=== PATIENT | female | born 1975 | race Caucasian/White ===

== ENCOUNTER 2021-09-02 16:58 | Inpatient (IN) | payer BC, SELFPAY ==
[2021-09-02] VITALS (19 sets, daily range): BP systolic 139–164; BP diastolic 82–99; PULSE 114–128; RESP 17–34; TEMP 36.1; O2SAT 99–100
--- NOTE | ~2021-09-02 | XR_ITS ---
XR chest 2V DATE: 09/02/2021 17:39 INDICATION: Shortness of breath. Dizziness. TECHNIQUE: PA and lateral views COMPARISON: None FINDINGS: Normal heart size. No hilar or mediastinal enlargement. No pulmonary infiltrate or consolid ation, pleural effusion or pulmonary vascular congestion or pneumothorax. Mild aortic unfolding. Included skeletal structures are unremarkable. IMPRESSION: No active cardiopulmonary disease Reviewed, dictated and finalized at location A.
--- NOTE | ~2021-09-02 | US_ITS ---
US abdomen limited DATE: 09/03/2021 11:11 INDICATION: Pancreatitis TECHNIQUE: Real-time imaging and Doppler analysis COMPARISON: 09/02/2021 CT abdomen pelvis FINDINGS: There is hepatic steatosis. No hepatic space-occupying mass lesion is evident. There is nor mal hepatopedal portal venous flow direction. No gallstones or gallbladder wall thickening or periosteal cholecystic fluid collection. Negative son ographic Velez's sign. The common bile duct measures 2.3 mm, normal. The pancreas is largely obscured by bowel gas. IMPRESSION: Limited visualization of pancreas due to overlying gas Hepatic steatosis Reviewed, dictated and finalized at Location A. Reviewed, dictated and finalized at location A. LOGUE LIBRARIAN
--- NOTE | ~2021-09-02 | NM_ITS ---
EXAMINATION: NM maryam stress w perfusion DATE: 09/06/2021 14:14 LOAD BUILDER INDICATION: Elevated troponin. Chest pain. TECHNIQUE: Rest images were obtained following intravenous administration of 10.5 mCi Tc99m tetrofosm in (Myoview). The patient was infused intravenously with Lexiscan (regadenoson). Then, 31.2 mCi Tc99m tetrofosmin (Myoview) was administered intravenously, and stress images were obtained. Data was hill nstructed into short axis and horizontal and vertical long axis SPECT images. Gated SPECT images were also obtained. COMPARISON: None. FINDINGS: There is no definite reversible or fixed perfusion abnormality to suggest ischemia or infar ction. There is no segmental wall motion abnormality. Left ventricular ejection fraction measures 6 7%. IMPRESSION: 1. No definite ischemia or infarct. 2. Normal left ventricular ejection fraction measuring 67%. Reviewed, dictated and finalized at location A. BUILDER
--- NOTE | ~2021-09-02 | CT_ITS ---
EXAMINATION: CT abdomen pelvis w con DATE: 09/02/2021 22:08 INDICATION: Nausea, vomiting, elevated lipase. Diabetic ketoacidosis. TECHNIQUE: Computed tomography (CT) of the abdomen and pelvis was performed with 100 mL Omnipaque-350 intravenous contrast. Automated exposure control and iterative reconstruction technique were employe d. The dose-length product was 718.81 mGy-cm. COMPARISON: None FINDINGS: Lung bases are clear. Heart size is normal. No pericardial or pleural effusion. Diffuse hepatic steat osis. Gallbladder, spleen, pancreas, bilateral adrenal glands and kidneys are normal. Bowels includin g the appendix are normal. Bladder and bilateral adnexa are unremarkable. The uterus is not identifie d and has likely been surgically resected. No free intraperitoneal gas or fluid. No pathologically en larged abdominal or pelvic lymphadenopathy. Mild scattered degenerative skeletal changes in the spine and pelvis. IMPRESSION: 1. No acute intra-abdominal/pelvic process. 2. Diffuse hepatic steatosis. Reviewed, dictated and finalized at location A. ER OPERATOR
--- NOTE | ~2021-09-02 | XR_ITS ---
EXAMINATION: XR chest PICC line DATE: 09/02/2021 22:57 INDICATION: PICC line placement TECHNIQUE: frontal view of the chest was obtained. COMPARISON: Chest radiograph dated 09/02/2021 FINDINGS: The lungs remain clear with no focal airspace opacities, pulmonary edema, pleural effusion or pneumot horax. The cardiomediastinal silhouette is normal. Left upper extremity peripherally inserted central venous catheter (PICC) tip at the near the superior cavoatrial junction. IMPRESSION: 1. Right PICC line tip near the superior cavoatrial junction. 2. No acute cardiopulmonary disease. Reviewed, dictated and finalized at location A. ICE PATIENT CARE SECRETARY
--- NOTE | 2021-09-02 17:05 | ECG_ITS ---
Measurements Intervals [place] Rate: 120 P: 20 UT: 132 QRS: 36 QRSD: 93 T: 25 QT: 353 QTc: 500 Interpretive Statements SINUS TACHYCARDIA BORDERLINE R WAVE PROGRESSION, ANTERIOR LEADS MINIMAL Q WAVES- INFERIOR LEADS BASELINE ARTIFACT- I, II, III, AVR, AVL, AVF, V3, V5-V6 ABNORMAL ECG Electronically Signed On 09-02-2021 20:02:26 CDT by Juan Salinas D.O.
[2021-09-02 18:27] LABS: Glucose Point of Care 433 mg/dl (65-105)
--- NOTE | 2021-09-02 18:35 | ED.SOB ---
HPI - SOB/Dyspnea General Chief Complaint: Shortness of Breath/Dyspnea <Erin Tovar PA-C - Last Filed: 09/02/21 23:54> Stated Complaint: i cant breath <MALI Peres Last Filed: 09/02/21 23:54> Time Seen by Provider: 09/02/21 18:18 <Erin Tovar PA-C - Last Filed: 09/02/21 23:54> Source: patient <MALI Peres Last Filed: 09/02/21 23:54> Mode of arrival: ambulatory <MALI Peres Last Filed: 09/02/21 23:54> Limitations: no limitations <MALI Peres Last Filed: 09/02/21 23:54> History of Present Illness HPI Narrative: This is a 46 year old female that presents to the ER for difficulty breathing. Reports history of diabetes mellitus. Reports she does not take her blood sugars at home. She has not taken her medications for diabetes the last couple of days. Reports last night she started feeling unwell and was having a lot of nausea and vomiting. Reports feeling dehydrated. Denies fever, cough, abdominal pain, chest pain, or dysuria. <MALI Peres Last Filed: 09/02/21 23:54> Related Data Allergies/Adverse Reactions: Allergies Allergy/AdvReac Type Severity Reaction Status Date / Time Penicillins Allergy Mild Unknown Verified 09/02/21 18:48 <MALI Peres Last Filed: 09/02/21 23:54> Review of Systems Review of Systems: CONSTITUTIONAL: Denies fever ENT: Denies rhinorrhea, congestion, sore throat CARDIOVASCULAR: Denies chest pain RESPIRATORY: Reports dyspnea. Denies cough GASTROINTESTINAL: Reports nausea and vomiting. Denies abdominal pain GENITOURINARY: Denies dysuria <MALI Peres Last Filed: 09/02/21 23:54> All systems reviewed & are unremarkable except as noted in HPI and below <MALI Peres Last Filed: 09/02/21 23:54> [facility] Past Medical History Medical History: Medical History (Updated 09/02/21 @ 21:06 by Erin Tovar PA-C) History of depression History of diabetes mellitus <Erin Tovar PA-C - Last Filed: 09/02/21 23:54> Social History Social History: Social History (Updated 09/02/21 @ 18:38 by Erin Tovar PA-C) Substance use: never <Erin Tovar PA-C - Last Filed: 09/02/21 23:54> Exam Narrative: GENERAL: Ill-appearing, well-nourished, and in no acute distress. HEAD: Normocephalic, atraumatic. EYES: EOMI. ENT: Mucous membranes dry. Oropharynx without tonsillar hypertrophy exudate or other lesions. CHEST: Tachypneic. Clear to auscultation. No respiratory distress. No wheezes rales or rhonchi HEART: Regular rate and rhythm. No murmur heard. Normal peripheral pulses. ABDOMEN: Soft, nontender, nondistended, normal active bowel sounds. EXTREMITIES: Normal range of motion. No edema. SKIN: Warm, dry, no rash. NEURO: No focal deficits. Alert and oriented x3. PSYCH: Normal mood and affect <Erin Tovar PA-C - Last Filed: 09/02/21 23:54> Course SCRAP PREPARATION SUPERVISOR/PA Physician Supervision For this patient encounter, I reviewed the SCRAP PREPARATION SUPERVISOR or PA documentation, treatment plan, and medical decision making; and I had [id number] time with this patient. PAtient presented with DKA. She is awake and alert and oriented x 3. ill appearing . She is receiving IVF, IV insulin. She was extremely acidotic with ph 6.9 so given bicarb dose. She has been accepted to ICU. Nursing staff was having difficulty with IVF access. She had a 20 gauge IV in. PICC line placed for better access. Chest xray shows PICC at SVC/right atrium. It was pulled back 1 cm before securing. <Teresita Gomes MD - Last Filed: 09/03/21 00:58> Consultations Consultation #1: Spoke with Dr. Che about patient and workup who will consult <Erin Tovar PA-C - Last Filed: 09/02/21 23:54> Date: 09/02/21 <Erin Tovar PA-C - Last Filed: 09/02/21 23:54> Time: 23:06 <Erin Tovar PA-C - Last Filed: 09/02/21 23:54> Consultation #2: Spoke with hos
[2021-09-02 18:42] LABS: Alveolar/Arterial O2 Gradient 4.4 mmHg; Base Excess ABG -27.6 mEq/l (+/-2.0); Carboxyhemoglobin 0.3 % THb (0-2.0); Fractional Inspired Oxygen 21 %; HCO3 ABG 2.1 mEq/l (22.0-26.0); Methemoglobin ABG 0.6 %THb (0-1.5); Oxygen Content ABG 24.9 %vol (16.0-22.0); Oxyhemoglobin 96.8 % THb (90.0-100.0); PO2 ABG 134.1 mmHg (80.0-100.0); PO2 FiO2 Ratio Arterial Blood 6.39 %; Reduced Hemoglobin 2.3 %THb (0-5.0); Total Hemoglobin 18.2 g/dL (12.0-18.0)
[2021-09-02 18:43] LABS: Device ROOM AIR; Modified Allen's Test Pass; PCO2 ABG 9.4 mmHg (35.0-45.0); Site Drawn LEFT RADIAL; pH ABG 6.973 (7.350-7.450)
[2021-09-02] MEDS: SODIUM CHLORIDE 0.9% IV 1,000 ML 999 ML IV CONT ×2 (18:49→21:11)
[2021-09-02] MEDS: INSULIN HUMAN REGULAR (*BKC) 100 UNITS/ML 8 UNITS IV PUSH (18:52)
[2021-09-02 19:05] LABS: Basophils Absolute Auto 0.2 K/mm3 (0.0-0.1); Basophils Percent Auto 0.7 % (0.2-1.2); Eosinophils Percent Auto 0.1 % (0-4.4); Hematocrit 55.3 % (37.0-47.0); Hemoglobin 17.7 g/dL (12.0-15.0); Immature Granulocyte Absolute 0.65 K/mm3 (0.00-0.031); Immature Granulocyte Percent A 2.5 % (0-0.5); Lymphocytes Absolute Auto 2.36 K/mm3 (0.9-3.2); Lymphocytes Percent Auto 9.2 % (18.3-44.2); Mean Corpuscular Hemoglobin 32.9 pg (26-34); Mean Corpuscular Volume 102.8 fl (80-100); Mean Platelet Volume 10.3 fl (7.4-10.4); Monocytes Absolute Auto 1.8 K/mm3 (0.1-0.6); Monocytes Percent Auto 7.1 % (2.6-8.5); Neutrophils Absolute Auto 20.6 K/mm3 (1.3-6.7); Neutrophils Percent Auto 80.4 % (45.5-73.1); Platelet Count Result 370 k/mm3 (150-375); Red Blood Count 5.38 M/mm3 (4.2-5.4); Red Cell Distribution Width 13.2 % (11.5-14.5); White Blood Count 25.6 K/mm3 (4.5-10.0)
--- NOTE | 2021-09-02 19:18 | PC.NURSE ---
Report received from STAN Dempsey. Assumed care of patient at this time.
--- NOTE | 2021-09-02 19:18 | PC.NURSE ---
Phlebotomy called for repeat lab draw. Patient tough stick.
[2021-09-02 19:21] LABS: Ethanol < 10 mg/dL (<10)
--- NOTE | 2021-09-02 19:56 | PC.NURSE ---
PICC line consent obtained.
[2021-09-02 20:43] LABS: Add Urine Microscopic? YES; Appearance Urine Cloudy (Clear); Bilirubin Urine Negative (Negative); Blood Urine 1+ (Negative); Color Urine Yellow (Yellow); Glucose Urine UA 3+ mg/dL (Negative); Ketones Urine 2+ mg/dL (Negative); Leukocyte Esterase Ur Negative LEU/UL (Negative); Mucus Urine Rare /lpf; Nitrate Urine Negative (Negative); Protein Urine 3+ mg/dL (Negative); Specific Grav Ur 1.021 (1.001-1.035); Squamous Epithelial Cell Urine Few /hpf (Few); Urobilinogen Urine Negative mg/dL (<2.0); WBC Urine 0-3 /hpf
[2021-09-02 21:30] LABS: Alanine Aminotransferase 25 U/L (4-35); Albumin Level 5.2 g/dL (3.5-5.1); Alkaline Phosphatase 103 U/L (38-126); Aspartate Amino Transferase 19 U/L (14-36); Bilirubin,Total 0.5 mg/dL (0.2-1.3); Blood Urea Nitrogen 22 mg/dL (7-17); Calcium 8.5 mg/dL (8.4-10.2); Carbon Dioxide < 5 mmol/L (22-30); Chloride 108 mmol/L (98-107); Estimated CRCL calculation 41 ml/min; Estimated Glomerular Filt Rate 35; Glucose 440 mg/dL (65-110); Lipase 869 U/L (23-300); Magnesium 2.7 mg/dL (1.6-2.3); Phosphorus 6.1 mg/dL (2.5-4.5); Potassium 5.6 mmol/L (3.4-5.0); Sodium 141 mmol/L (137-145)
--- NOTE | 2021-09-02 22:00 | PC.NURSE ---
Bedside glucose is 399.
--- NOTE | 2021-09-02 22:01 | PC.NURSE ---
Patient taken to CT via stretcher.
[2021-09-02 22:03] LABS: Glucose Point of Care 399 mg/dl (65-105)
--- NOTE | 2021-09-02 22:40 | PC.NURSE ---
RN attempted to start Insulin Gtt and give bicarb push, but procedure is currently being done with entire field sterile at this time.
--- NOTE | 2021-09-02 22:56 | PC.NURSE ---
PICC being placed by specialty RN.
[2021-09-02] MEDS: SODIUM BICARBONATE 8.4% 50 MEQ/50 ML SYRINGE 83 MEQ IV PUSH (23:09)
[2021-09-02 23:22] LABS: Glucose Point of Care 333 mg/dl (65-105)
[2021-09-02] MEDS: INSULIN HUMAN REGULAR (*BKC) 100 UNITS in SODIUM CHLORIDE 0.9% IV 99 ML 5.46 UNITS IV CONT (23:27)
[2021-09-03] VITALS (19 sets, daily range): BP systolic 121–178; BP diastolic 78–98; PULSE 96–125; RESP 20–26; TEMP 36.4–36.8; O2SAT 97–100; BMI 28.8
[2021-09-03 00:24] LABS: Glucose Point of Care 356 mg/dl (65-105)
--- NOTE | 2021-09-03 00:24 | PC.NURSE ---
Bedside glucose 356.
[2021-09-03 01:05] LABS: Blood Urea Nitrogen 18 mg/dL (7-17); Calcium 5.7 mg/dL (8.4-10.2); Carbon Dioxide < 5 mmol/L (22-30); Chloride 117 mmol/L (98-107); Estimated CRCL calculation 63 ml/min; Estimated Glomerular Filt Rate 60; Glucose 335 mg/dL (65-110); Magnesium 1.9 mg/dL (1.6-2.3); Phosphorus 4.1 mg/dL (2.5-4.5); Sodium 141 mmol/L (137-145)
[2021-09-03 01:37] LABS: Glucose Point of Care 291 mg/dl (65-105)
[2021-09-03 02:00] LABS: Glucose Point of Care 266 mg/dl (65-105)
--- NOTE | 2021-09-03 02:23 | PC.NURSE ---
Bedside glucose is 251.
[2021-09-03 02:25] LABS: Glucose Point of Care 251 mg/dl (65-105)
--- NOTE | 2021-09-03 03:03 | PM.IMHP ---
H&P: HPI History of Present Illness Date/Time: 09/03/21 03:03 Chief Complaint: Shortness of breath, nausea vomiting Narrative: 46-year-old female with past medical history of type 2 diabetes mellitus who presented to the ER from urgent care due to dyspnea, nausea and vomiting. She reports that he has not taken her metformin or Jardiance in several weeks. She is supposed to be taking Ozempic but cannot afford it. She does not check her blood glucoses. She started having dyspnea on Saturday evening that had progressively worsened so she went to urgent care for evaluation. [facility] care referred her to the ER. She reports that dyspnea was accompanied by a sensation of tightness around her lower chest and epigastric area. She denies any cough. She has been having nasal congestion for several weeks but is unchanged over that time period. She denies any visual changes. She reports that she has had an extremely dry mouth since Saturday. She also started feeling somewhat nauseated on Saturday with significant decreased appetite. She states that she is able to tolerate clear liquids but any time she tries to eat food she has worsening nausea with some vomiting. She denies any a a matted masses or coffee-ground emesis. She has not been having any diarrhea or constipation. She denies any polydipsia. Sounds as if she likely has some chronic polyuria is unchanged from baseline. She denies a history of diabetic peripheral neuropathy or retinopathy. She reports that her hands and feet have been extremely cold for the last couple of days to a week. She reports that she has never had DKA in the past. She has had diabetes since either 2001 or 2011. She received the [employer] COVID vaccine in January. Review of Systems Review of Systems: 12 systems were reviewed with pertinent positives and negatives per HPI. Except as documented in the HPI, all other systems were reviewed and are negative. [facility] Past Medical History Medical History (Updated 09/03/21 @ 04:01 by Mary Rodriguez DO) Depression Diabetes mellitus Obstructive sleep apnea Noncompliant with CPAP therapy Surgical History Surgical History (Updated 09/03/21 @ 04:01 by Mary Rodriguez DO) H/O hysterectomy for benign disease Family History Family History (Updated 09/03/21 @ 04:02 by Mary Rodriguez DO) Other Unknown family medical history Social History Social History (Updated 09/03/21 @ 04:04 by HELLEN Lopez Social History: She lives with her of 21 years. She does not have any children. She is a full-time residential real estate sales manager. She is a former smoker she used to smoke 0.5 packs of cigarettes per week for approximately 25 years. Primary care physician: Dr. Grace Currie in [place] Code status: Full code Surrogate decision maker: Samir () Years smoked: 25 Smoking status: Former smoker Alcohol intake: current Drinks per week: 21 Alcohol use details: She drinks 2-3 alcoholic beverages a night. Substance use: never Comments The patient reports that she is estranged from her mother and father and her brother. She does not know their medical history and states that she does not even know if they are still alive. Meds Home Medications and Allergies Allergies Allergy/AdvReac Type Severity Reaction Status Date / Time Penicillins Allergy Mild Unknown Verified 09/02/21 18:48 Vital Signs Vital Signs - 24 hr 09/02/21 17:05 09/02/21 18:10 09/02/21 19:55 Temperature 97 F L Pulse Rate 114 H 123 H 126 H Respiratory Rate 17 34 H Blood Pressure 139/87 164/99 H Pulse Oximetry 100 100 100 09/02/21 19:57 09/02/21 20:00 09/02/21 20:01 Temperature Pulse Rate 122 H 128 H Respiratory Rate 28 H 26 H 25 H Blood Pressure 162/85 H 152/82 H Pulse Oximetry 100 99 100 09/02/21 20:15 09/02/21 20:42 09/02/21 20:45 Temperature Pulse Rate 115 H 116 H 115 H Respiratory Rate 23 H 22 H 19 Blood Pressure
[2021-09-03] MEDS: KCL 20 MEQ/D5/0.45% SOD CHL 1,000 ML 150 ML IV CONT ×3 (03:13→20:16)
[2021-09-03] MEDS: SODIUM CHLORIDE 0.9% IV 1,000 ML 999 ML IV CONT ×2 (03:55→05:04)
--- NOTE | 2021-09-03 04:08 | PC.NURSE ---
This patient, Brunilda Wheeler, was admitted to Intensive Care Unit-10. Patient/family oriented to hospital policies and general routines including ID bracelet, bed and alarms, visiting hours, pain management, procedures, bathroom and other care routines, personal items, smoking policy, room service/diet, and visiting hours. Information on how to activate the Rapid Response Team has been discussed. Patient/Family are encouraged to report perceived risks to care and to ask questions if they do not understand what they are told or what they should do.
[2021-09-03 04:38] LABS: Hematocrit 43.4 % (37.0-47.0); Hemoglobin 14.3 g/dL (12.0-15.0); Mean Corpuscular HGB Conc 32.9 g/dl (32-36); Mean Corpuscular Hemoglobin 32.8 pg (26-34); Mean Corpuscular Volume 99.5 fl (80-100); Mean Platelet Volume 9.8 fl (7.4-10.4); Platelet Count Result 265 k/mm3 (150-375); Red Blood Count 4.36 M/mm3 (4.2-5.4); Red Cell Distribution Width 13.2 % (11.5-14.5); White Blood Count 21.4 K/mm3 (4.5-10.0)
[2021-09-03 04:50] LABS: Blood Urea Nitrogen 18 mg/dL (7-17); Calcium 7.9 mg/dL (8.4-10.2); Carbon Dioxide < 5 mmol/L (22-30); Chloride 121 mmol/L (98-107); Estimated CRCL calculation 66 ml/min; Estimated Glomerular Filt Rate > 60; Glucose 255 mg/dL (65-110); Potassium 3.7 mmol/L (3.4-5.0); Sodium 145 mmol/L (137-145)
[2021-09-03] MEDS: CENTRAL LINE FLUSH 10 ML IV PUSH ×3 (06:08→21:42)
[2021-09-03 06:10] LABS: Glucose Point of Care 210 mg/dl (65-105)
[2021-09-03 06:10] LABS: Glucose Point of Care 211 mg/dl (65-105)
[2021-09-03 06:10] LABS: Glucose Point of Care 229 mg/dl (65-105)
[2021-09-03 06:10] LABS: Glucose Point of Care 212 mg/dl (65-105)
[2021-09-03 06:11] LABS: Glucose Point of Care 209 mg/dl (65-105)
[2021-09-03 07:01] LABS: Glucose Point of Care 182 mg/dl (65-105)
[2021-09-03] MEDS: SODIUM BICARBONATE 8.4% 50 MEQ/50 ML SYRINGE 74 MEQ IV PUSH (07:55)
[2021-09-03] MEDS: ENOXAPARIN 40 MG/0.4 ML SYRINGE SUB-Q (08:04)
[2021-09-03 08:06] LABS: Glucose Point of Care 181 mg/dl (65-105)
--- NOTE | 2021-09-03 08:37 | ECG_ITS ---
Measurements Intervals [place] Rate: 104 P: 12 CO: 139 QRS: 16 QRSD: 96 T: 238 QT: 355 QTc: 467 Interpretive Statements SINUS TACHYCARDIA BORDERLINE R WAVE PROGRESSION, ANTERIOR LEADS MINIMAL Q WAVES- INFERIOR LEADS NONSPECIFIC ST & T-WAVE ABNORMALITY- INF/LAT LEADS BORDERLINE ECG Electronically Signed On 09-03-2021 13:24:04 FLUE CLEANER by Juan Salinas D.O.
[2021-09-03 09:02] LABS: Glucose Point of Care 167 mg/dl (65-105)
[2021-09-03 09:10] LABS: Anion Gap 14 mmol/L (8-16); Blood Urea Nitrogen 15 mg/dL (7-17); Carbon Dioxide 10 mmol/L (22-30); Chloride 123 mmol/L (98-107); Estimated CRCL calculation 83 ml/min; Estimated Glomerular Filt Rate > 60; Glucose 182 mg/dL (65-110); Lipase 1093 U/L (23-300); Potassium 2.8 mmol/L (3.4-5.0); Sodium 147 mmol/L (137-145)
--- NOTE | 2021-09-03 09:33 | WPDCNINT ---
Assessment and Plan Assessment and plan (1) Diabetic ketoacidosis: Qualifiers: Diabetes mellitus complication detail: without coma Diabetes mellitus type: type 2 Qualified Code(s): E11.10 - Type 2 diabetes mellitus with ketoacidosis without coma Code(s): E11.10 - Type 2 diabetes mellitus with ketoacidosis without coma Status: Acute Assessment and Plan: Secondary to noncompliance. Her HbA1c is pending Patient was given IV fluid bolus and started on IV insulin infusion. She is also on IV fluids which have been transition to D5 with half-normal saline with potassium. Her BMP this morning shows hypokalemia with K of 2.8. I have pause her insulin drip and will replace potassium and resume insulin drip after 4 hours Continue serial BMPs Pending consult rotary bar operator. Advance diet as patient at this time does not have any GI symptoms (2) Leukocytosis: Code(s): D72.829 - Elevated white blood cell count, unspecified Status: Acute Assessment and Plan: Likely due to hemoconcentration and or stress reaction from dehydration. The patient has no evidence of active infection. (3) Dehydration: Code(s): E86.0 - Dehydration Status: Acute Assessment and Plan: Secondary to DKA she has received seeing him IV fluids and will continue on IV fluids infusion at this time (4) Pancreatitis: Code(s): K85.90 - Acute pancreatitis without necrosis or infection, unspecified Status: Acute Assessment and Plan: Elevated lipase be secondary to DKA or her alcohol use Her bilirubin level was normal Check triglycerides Check right upper quadrant ultrasound Monitor lipase level (5) Chest pain: Code(s): R07.9 - Chest pain, unspecified Status: Acute Assessment and Plan: Patient complains of bandlike sensation around chest which has resolved at this time. And patient is at high risk of coronary disease due to diabetes, will repeat EKG and check troponins. G done on admission review (6) Acute kidney injury: Code(s): N17.9 - Acute kidney failure, unspecified Status: Acute Assessment and Plan: Patient presented with elevated creatinine 1.6 which was likely from dehydration and hypovolemia. Creatinine has improved with IV fluids and is now in normal range. Urine output electrolytes and creatinine Additional Plan DVT prophylaxis -Lovenox Nutrition -advanced Code Status - Full Code Total Critical Care Time - 32 minutes Due to a high probability of clinically significant, life threatening deterioration, the patient required my highest level of preparedness to intervene emergently and I personally spent this critical care time directly and personally managing the patient. This critical care time included obtaining a history; examining the patient; pulse oximetry; ordering and review of studies; arranging urgent treatment with development of a management plan; evaluation of patient's response to treatment; frequent reassessment; and discussions with other providers. It was exclusive of separately billable procedures and treating other patients and teaching time. Please see Assessment and Plan section and the rest of the note for further information on patient assessment and treatment [employer] Specialist Consult Note Consult date: 09/03/21 HPI: Brunilda Wheeler is a 46 year old female with past medical history of depression and type 2 diabetes who was currently not taking any medication secondary to noncompliance presented with chief complaint of shortness of breath ER yesterday. Patient stated that shortness of breath started 2 days ago and she felt that she was running a marathon all the time and was unable to catch her breath. She felt dehydrated dry mouth. She had nausea vomiting and unable to keep any significant amount of f food down. She states that she had a sensation of band around her chest as she was unable to catch her breath which lasted
[2021-09-03] MEDS: POTASSIUM CHLORIDE 20 MEQ TABLET 40 MEQ PO ×2 (09:46→22:30)
[2021-09-03 10:06] LABS: Glucose Point of Care 182 mg/dl (65-105)
[2021-09-03 10:23] LABS: Triglycerides 161 mg/dL (<150)
[2021-09-03 10:56] LABS: Troponin I 0.184 ng/mL (0.000-0.034)
[2021-09-03 14:07] LABS: Glucose Point of Care 420 mg/dl (65-105)
[2021-09-03] MEDS: SODIUM CHLORIDE 0.9% IV 1,000 ML 150 ML IV CONT (14:18)
[2021-09-03] MEDS: ASPIRIN 325 MG TABLET PO (14:24)
[2021-09-03 14:56] LABS: Anion Gap 17 mmol/L (8-16); Blood Urea Nitrogen 12 mg/dL (7-17); Calcium 7.8 mg/dL (8.4-10.2); Carbon Dioxide 6 mmol/L (22-30); Chloride 117 mmol/L (98-107); Estimated CRCL calculation 83 ml/min; Estimated Glomerular Filt Rate > 60; Glucose 551 mg/dL (65-110); Potassium 4.1 mmol/L (3.4-5.0); Sodium 140 mmol/L (137-145)
[2021-09-03 15:06] LABS: Troponin I 0.237 ng/mL (0.000-0.034)
[2021-09-03 15:10] LABS: Glucose Point of Care 407 mg/dl (65-105)
[2021-09-03] MEDS: INSULIN HUMAN REGULAR (*BKC) 100 UNITS in SODIUM CHLORIDE 0.9% IV 99 ML 30 UNITS IV CONT (15:20)
[2021-09-03 16:13] LABS: Glucose Point of Care 388 mg/dl (65-105)
[2021-09-03 17:10] LABS: Glucose Point of Care 259 mg/dl (65-105)
[2021-09-03] MEDS: INSULIN HUMAN REGULAR (*BKC) 100 UNITS in SODIUM CHLORIDE 0.9% IV 99 ML 11.5 UNITS IV CONT (18:19)
[2021-09-03 18:22] LABS: Glucose Point of Care 156 mg/dl (65-105)
[2021-09-03 19:26] LABS: Glucose Point of Care 267 mg/dl (65-105)
[2021-09-03 20:21] LABS: Glucose Point of Care 323 mg/dl (65-105)
[2021-09-03] MEDS: INSULIN HUMAN REGULAR (*BKC) 100 UNITS in SODIUM CHLORIDE 0.9% IV 99 ML 9.7 UNITS IV CONT (21:35)
[2021-09-03 21:48] LABS: Glucose Point of Care 129 mg/dl (65-105)
[2021-09-03 22:05] LABS: Anion Gap 11 mmol/L (8-16); Blood Urea Nitrogen 8 mg/dL (7-17); Calcium 8.5 mg/dL (8.4-10.2); Carbon Dioxide 13 mmol/L (22-30); Chloride 116 mmol/L (98-107); Estimated CRCL calculation 113 ml/min; Estimated Glomerular Filt Rate > 60; Glucose 158 mg/dL (65-110); Potassium 2.6 mmol/L (3.4-5.0); Sodium 140 mmol/L (137-145)
[2021-09-03 22:38] LABS: Glucose Point of Care 103 mg/dl (65-105)
[2021-09-04] VITALS (10 sets, daily range): BP systolic 134–166; BP diastolic 75–85; PULSE 90–118; RESP 16–23; TEMP 36.5–36.8; O2SAT 99–100; BMI 33.2
[2021-09-04 00:26] LABS: Glucose Point of Care 116 mg/dl (65-105)
[2021-09-04 03:38] LABS: Glucose Point of Care 197 mg/dl (65-105)
[2021-09-04 05:16] LABS: Glucose Point of Care 182 mg/dl (65-105)
[2021-09-04] MEDS: KCL 20 MEQ/D5/0.45% SOD CHL 1,000 ML 150 ML IV CONT ×2 (05:18→12:10)
[2021-09-04 05:22] LABS: Hematocrit 35.3 % (37.0-47.0); Hemoglobin 12.3 g/dL (12.0-15.0); Mean Corpuscular HGB Conc 34.8 g/dl (32-36); Mean Corpuscular Hemoglobin 32.8 pg (26-34); Mean Corpuscular Volume 94.1 fl (80-100); Mean Platelet Volume 9.7 fl (7.4-10.4); Platelet Count Result 183 k/mm3 (150-375); Red Blood Count 3.75 M/mm3 (4.2-5.4); Red Cell Distribution Width 13.6 % (11.5-14.5); White Blood Count 11.5 K/mm3 (4.5-10.0)
[2021-09-04] MEDS: CENTRAL LINE FLUSH 10 ML IV PUSH ×3 (05:22→21:14)
[2021-09-04 05:42] LABS: Alanine Aminotransferase 18 U/L (4-35); Albumin Level 3.3 g/dL (3.5-5.1); Alkaline Phosphatase 53 U/L (38-126); Anion Gap 12 mmol/L (8-16); Aspartate Amino Transferase 19 U/L (14-36); Bilirubin,Total 0.5 mg/dL (0.2-1.3); Blood Urea Nitrogen 6 mg/dL (7-17); Calcium 8.1 mg/dL (8.4-10.2); Carbon Dioxide 12 mmol/L (22-30); Chloride 114 mmol/L (98-107); Estimated CRCL calculation 96 ml/min; Estimated Glomerular Filt Rate > 60; Glucose 180 mg/dL (65-110); Magnesium 2.1 mg/dL (1.6-2.3); Potassium 3.2 mmol/L (3.4-5.0); Sodium 138 mmol/L (137-145)
[2021-09-04 06:44] LABS: Anion Gap 11 mmol/L (8-16); Blood Urea Nitrogen 7 mg/dL (7-17); Carbon Dioxide 11 mmol/L (22-30); Chloride 114 mmol/L (98-107); Estimated CRCL calculation 113 ml/min; Estimated Glomerular Filt Rate > 60; Glucose 206 mg/dL (65-110); Sodium 136 mmol/L (137-145)
[2021-09-04 06:58] LABS: Glucose Point of Care 121 mg/dl (65-105)
--- NOTE | 2021-09-04 07:54 | ECHO_ITS ---
Patient Info Name: Brunilda Wheeler Age: 46 years : 1975 Gender: Female Ht: 63 in Wt: 187 lbs BSA: 1.98 m2 HR: 97 bpm BP: 146 / 77 mmHg Heart Rhythm: Sinus Rhythm Exam Date: 09/04/2021 9:46 AM Exam Location: [facility] Patient Status: Inpatient Admit Date: 09/03/2021 Staff Ordering Physician: Renan Pepe MD Middleware Engineer: Tayo Velez RDCS, RT Attending Provider: Mary Rodriguez DO Referring Physician: My SCANLON; Exam Type: CA echo doppler color flow Study Info Indications I50.9 - Heart failure, unspecified Complete two-dimensional, color flow and Doppler transthoracic echocardiogram is performed. Strain analysis performed. Summary 1. Complete two-dimensional, color flow and Doppler transthoracic echocardiogram is performed. 2. Mild left ventricular hypertrophy with hyperdynamic systolic function. 3. Trivial amount of aortic valve regurgitation. Left Ventricle Left ventricular chamber dimension is normal. Left ventricular systolic function is hyperdynamic, estimated at >70%. There is mild concentric increased left ventricular wall thickness. The left ventricular diastolic function is grade I diastolic dysfunction. Right Ventricle Right ventricular chamber dimension is normal. Left Atria Left atrial chamber dimension is normal. Right Atria Right atrial chamber dimension is normal. Aortic Valve The aortic valve is normal. Pulmonic Valve The pulmonic valve is not well visualized. Mitral Valve The mitral valve has normal leaflets. Tricuspid Valve The tricuspid valve leaflets are normal. Pericardium/Pleural The pericardium appears normal. Aorta The aortic root size at the sinus of Valsalva is normal. Left Ventricular Outflow Tract Name Value Normal LVOT 2D LVOT Diameter 2.0 cm LVOT Doppler LVOT Peak Gradient 4 mmHg LVOT Mean Gradient 2 mmHg LVOT VTI 18 cm LVOT VTI/AV VTI Ratio 0.7 LVOT Stroke Volume 54 ml LVOT CO 5.6 l/min LVOT CI 2.8 l/min/m2 Mitral Valve Name Value Normal MV Doppler MV Decel [place] 421 cm/s2 MV PHT 55 ms MV Area (PHT) 4.0 cm2 4.0-5.0 MV Diastolic Function MV E Peak Velocity 79 cm/s MV A Peak Velocity 72 cm/s MV E/A 1.1 MV Decel Time 189 ms MV Annular TDI MV E/e' (Septal)
[2021-09-04] MEDS: ENOXAPARIN 40 MG/0.4 ML SYRINGE SUB-Q (08:32)
[2021-09-04] MEDS: ASPIRIN 325 MG TABLET PO (08:32)
[2021-09-04 08:36] LABS: Glucose Point of Care 92 mg/dl (65-105)
[2021-09-04] MEDS: POTASSIUM CHLORIDE 20 MEQ TABLET 40 MEQ PO (08:36)
[2021-09-04 09:29] LABS: Glucose Point of Care 91 mg/dl (65-105)
[2021-09-04 09:54] LABS: Anion Gap 7 mmol/L (8-16); Blood Urea Nitrogen 4 mg/dL (7-17); Calcium 7.9 mg/dL (8.4-10.2); Carbon Dioxide 16 mmol/L (22-30); Chloride 115 mmol/L (98-107); Estimated CRCL calculation 147 ml/min; Estimated Glomerular Filt Rate > 60; Glucose 108 mg/dL (65-110); Potassium 3.4 mmol/L (3.4-5.0); Sodium 138 mmol/L (137-145)
[2021-09-04] MEDS: INSULIN GLARGINE (*BKC) 100 UNITS/ML 30 UNITS SUB-Q (11:40)
[2021-09-04 11:44] LABS: Glucose Point of Care 263 mg/dl (65-105)
[2021-09-04 11:44] LABS: Glucose Point of Care 90 mg/dl (65-105)
[2021-09-04 11:44] LABS: Glucose Point of Care 230 mg/dl (65-105)
--- NOTE | 2021-09-04 11:59 | PCDIET ---
Dietitian consult for DKA. See Nutritional Teaching Intervention. Thank you for the consult.
[2021-09-04] MEDS: INSULIN ASPART (*BKC) 100 UNITS/ML SUB-Q ×2 (12:20→17:43)
[2021-09-04 13:17] LABS: Glucose Point of Care 265 mg/dl (65-105)
[2021-09-04 13:44] LABS: Anion Gap 8 mmol/L (8-16); Blood Urea Nitrogen 3 mg/dL (7-17); Calcium 8.1 mg/dL (8.4-10.2); Carbon Dioxide 15 mmol/L (22-30); Chloride 114 mmol/L (98-107); Estimated CRCL calculation 121 ml/min; Estimated Glomerular Filt Rate > 60; Glucose 239 mg/dL (65-110); Potassium 3.6 mmol/L (3.4-5.0); Sodium 137 mmol/L (137-145)
--- NOTE | 2021-09-04 13:58 | WPDINTPN ---
Progress Note: A&P Assessment and Plan (1) Diabetic ketoacidosis: Qualifiers: Diabetes mellitus complication detail: without coma Diabetes mellitus type: type 2 Qualified Code(s): E11.10 - Type 2 diabetes mellitus with ketoacidosis without coma Code(s): E11.10 - Type 2 diabetes mellitus with ketoacidosis without coma Status: Acute Assessment and Plan: Secondary to noncompliance. Her HbA1c is pending Patient was given IV fluid bolus and started on IV insulin infusion. -anion gap has closed, will transition to long-acting insulin sliding scale insulin -will initiate diabetic diet -pending field staff manager evaluation (2) Leukocytosis: Code(s): D72.829 - Elevated white blood cell count, unspecified Status: Acute Assessment and Plan: Likely due to hemoconcentration and or stress reaction from dehydration. The patient has no evidence of active infection. (3) Dehydration: Code(s): E86.0 - Dehydration Status: Acute Assessment and Plan: Secondary to DKA she has received seeing him IV fluids and will continue on IV fluids infusion at this time (4) Pancreatitis: Code(s): K85.90 - Acute pancreatitis without necrosis or infection, unspecified Status: Acute Assessment and Plan: Elevated lipase be secondary to DKA or her alcohol use Her bilirubin level was normal Triglycerides mildly elevated RUQ ultrasound hepatic steatosis, limited visualization of pancreas due to overlying gas Monitor lipase level (5) Chest pain: Code(s): R07.9 - Chest pain, unspecified Status: Acute Assessment and Plan: Patient complains of bandlike sensation around chest which has resolved at this time. And patient is at high risk of coronary disease due to diabetes, -troponins have plateaued, will obtain echocardiogram -consult cardiology -continue aspirin (6) Acute kidney injury: Code(s): N17.9 - Acute kidney failure, unspecified Status: Acute Assessment and Plan: Patient presented with elevated creatinine 1.6 which was likely from dehydration and hypovolemia. Creatinine has improved with IV fluids and is now in normal range. -creatinine down to 0.6 adequate urine output, continue to monitor urine output electrolytes and creatinine Additional Plan DVT prophylaxis -Lovenox Nutrition -advance to diabetic diet Code Status - Full Code Total Critical Care Time - 32 minutes Due to a high probability of clinically significant, life threatening deterioration, the patient required my highest level of preparedness to intervene emergently and I personally spent this critical care time directly and personally managing the patient. This critical care time included obtaining a history; examining the patient; pulse oximetry; ordering and review of studies; arranging urgent treatment with development of a management plan; evaluation of patient's response to treatment; frequent reassessment; and discussions with other providers. It was exclusive of separately billable procedures and treating other patients and teaching time. Please see Assessment and Plan section and the rest of the note for further information on patient assessment and treatment Subjective Date/time seen: 09/04/21 13:58 Interval history: Reason for consult: Hyperglycemia, diabetic ketoacidosis 09/04/2021: Patient seen and examined this morning, feels much better, denies any shortness of breath, chest pain, abdominal pain, nausea, vomiting. Urine output has been adequate, afebrile and hemodynamically stable. Troponins have plateaued Review of Systems Review of Systems: All systems reviewed & are unremarkable except as noted in HPI and below Exam Narrative: General: No acute distress, well-developed well-nourished HEENT: Moist oral mucosa, pupils equal and reactive Respiratory: No tachypnea, no increased work of breathing Cardiovascular: Sinus tachycardia,
--- NOTE | 2021-09-04 19:07 | PC.NURSE ---
This patient, Brunilda Wheeler, was transferred to [facility] on 09/04/21 at 1852. Personal belongings sent with patient. Report given to Genna PIERCE. Appropriate documentation sent with patient.
[2021-09-04 21:40] LABS: Glucose Point of Care 231 mg/dl (65-105)
[2021-09-05] MEDS: ACETAMINOPHEN 325 MG TABLET 650 MG PO (00:25)
[2021-09-05] MEDS: CENTRAL LINE FLUSH 10 ML IV PUSH (05:40)
[2021-09-05] MEDS: KCL 20 MEQ/D5/0.45% SOD CHL 1,000 ML 150 ML IV CONT (05:40)
[2021-09-05 06:00] VITALS: BP 156/88; PULSE 93; RESP 18; TEMP 37.1; O2SAT 99
[2021-09-05 06:32] LABS: Basophils Percent Auto 0.5 % (0.2-1.2); Eosinophils Percent Auto 0.6 % (0-4.4); Hematocrit 35.1 % (37.0-47.0); Hemoglobin 12.2 g/dL (12.0-15.0); Immature Granulocyte Absolute 0.03 K/mm3 (0.00-0.031); Immature Granulocyte Percent A 0.5 % (0-0.5); Lymphocytes Absolute Auto 1.91 K/mm3 (0.9-3.2); Lymphocytes Percent Auto 29.9 % (18.3-44.2); Mean Corpuscular HGB Conc 34.8 g/dl (32-36); Mean Corpuscular Hemoglobin 33.1 pg (26-34); Mean Corpuscular Volume 95.1 fl (80-100); Mean Platelet Volume 10.3 fl (7.4-10.4); Monocytes Absolute Auto 0.6 K/mm3 (0.1-0.6); Monocytes Percent Auto 8.8 % (2.6-8.5); Neutrophils Absolute Auto 3.8 K/mm3 (1.3-6.7); Neutrophils Percent Auto 59.7 % (45.5-73.1); Platelet Count Result 168 k/mm3 (150-375); Red Blood Count 3.69 M/mm3 (4.2-5.4); Red Cell Distribution Width 13.8 % (11.5-14.5); White Blood Count 6.4 K/mm3 (4.5-10.0)
[2021-09-05 06:44] LABS: Alanine Aminotransferase 16 U/L (4-35); Albumin Level 3.2 g/dL (3.5-5.1); Alkaline Phosphatase 56 U/L (38-126); Anion Gap 6 mmol/L (8-16); Aspartate Amino Transferase 19 U/L (14-36); Bilirubin,Total 0.6 mg/dL (0.2-1.3); Blood Urea Nitrogen 5 mg/dL (7-17); Carbon Dioxide 22 mmol/L (22-30); Chloride 109 mmol/L (98-107); Estimated CRCL calculation 121 ml/min; Estimated Glomerular Filt Rate > 60; Glucose 233 mg/dL (65-110); Lipase 509 U/L (23-300); Magnesium 1.9 mg/dL (1.6-2.3); Potassium 3.5 mmol/L (3.4-5.0); Sodium 137 mmol/L (137-145)
[2021-09-05 08:13] LABS: Glucose Point of Care 208 mg/dl (65-105)
[2021-09-05] MEDS: ENOXAPARIN 40 MG/0.4 ML SYRINGE SUB-Q (08:53)
[2021-09-05] MEDS: INSULIN ASPART (*BKC) 100 UNITS/ML SUB-Q ×3 (08:53→17:05)
[2021-09-05] MEDS: INSULIN GLARGINE (*BKC) 100 UNITS/ML 30 UNITS SUB-Q (08:53)
[2021-09-05] MEDS: ASPIRIN 325 MG TABLET PO (08:53)
[2021-09-05 11:23] LABS: Hemoglobin A1C 9.7 % (<5.7)
--- NOTE | 2021-09-05 11:23 | PC.NURSE ---
On 09/05/21, the student, [Tiffanie Gonzalez ], provided care and completed [facility] documentation on this patient. I have reviewed the student's documentation and agree with the findings.
[2021-09-05 11:33] LABS: Glucose Point of Care 291 mg/dl (65-105)
[2021-09-05 13:35] VITALS: BP 157/88; PULSE 108; RESP 20; TEMP 37.2; O2SAT 99
--- NOTE | 2021-09-05 15:30 | PM.IMPN ---
Progress Note: A&P Assessment and Plan (1) Diabetic ketoacidosis: Qualifiers: Diabetes mellitus complication detail: without coma Diabetes mellitus type: type 2 Qualified Code(s): E11.10 - Type 2 diabetes mellitus with ketoacidosis without coma Code(s): E11.10 - Type 2 diabetes mellitus with ketoacidosis without coma Status: Acute Assessment and Plan: Patietn with severe metabolic acidosis. pH 6.97 with pCO2 9.4. Serum bicarb <5. She was admitted to ICU and started on DKA protocol. Secondary to noncompliance. Anion gap has closed. She was transitioned to Lantus. Continue diabetic diet. Diab educator couldnt get to see her but can schedule this as outpatient. Compliance with medications is utmost importance and this was stressed. (2) Diabetes mellitus: Code(s): E11.9 - Type 2 diabetes mellitus without complications Status: Inactive Assessment and Plan: A1c 9.7. The patient's metformin, glipizide and Jardiance had not been filled since February and March 2021. Her Ozempic had not been filled since May 2021. Will try to get a list of her home meds. Resume some of these once list is available. Continue Lantus today. IV fluids stopped today (which contained dextrose) so will not adjust lantus yet. May be able to control her DM with lantus at night and oral medications. Home with meter (she does not have one at home). inclusion paraeducator as outpatient. (3) Pancreatitis: Code(s): K85.90 - Acute pancreatitis without necrosis or infection, unspecified Status: Acute Assessment and Plan: Elevated lipase be secondary to DKA or her alcohol use. TG slightly elevated to 161. Her LFTs was normal. RUQ ultrasound showing hepatic steatosis with limited visualization of pancreas due to overlying gas. CT A/P showing no acute findings. Lipase peaked at 1093. Lipase improving to 509 today. Patient eating without abdominal pain, nausea or vomiting. Continue to follow. (4) Chest pain: Code(s): R07.9 - Chest pain, unspecified Status: Acute Assessment and Plan: Patient complains of bandlike sensation around chest which has resolved. Patient is at high risk of coronary disease due to diabetes and possible HTN. Troponins have plateaued at 0.27. Echo showing EF 70% with diastolic dysfunction. No wall motion abnormalities noted. Continue ASA. Add metoprolol. Cardiology consult (5) Acute kidney injury: Code(s): N17.9 - Acute kidney failure, unspecified Status: Acute Assessment and Plan: Patient presented with elevated creatinine 1.6 which was likely from dehydration and hypovolemia. Creatinine has improved with IV fluids and is now in normal range. Resolved. (6) Acute urinary retention: Code(s): R33.8 - Other retention of urine Status: Acute Assessment and Plan: Patient was retaining urine with 1.3 L in the bladder noted in the ER. Diaz catheter was placed at that time. Diaz has since been resumed and voiding normally. No clinical evidence of distended bladder. Follow (7) Leukocytosis: Code(s): D72.829 - Elevated white blood cell count, unspecified Status: Acute Assessment and Plan: Likely due to hemoconcentration and or stress reaction from dehydration. The patient has no evidence of active infection. WBC normal now. Follow (8) Dehydration: Code(s): E86.0 - Dehydration Status: Acute Assessment and Plan: Secondary to DKA. She has been fully rehydrated. Renal function normal. Resolved. (9) DVT prophylaxis: Code(s): Z29.9 - Encounter for prophylactic measures, unspecified Status: Acute Assessment and Plan: Lovenox Additional Plan HTN - add lisinopril. Monitor closely. Subjective Date/time seen: 09/05/21 15:30 Interval history: 46yo female with DM here for DKA. Assuming care. Chart reviewed. She slept well. She does take Januvia and metfor
--- NOTE | 2021-09-05 15:36 | PM.CNCAR ---
Assessment and Plan Assessment and plan (1) Elevated troponin: Code(s): R77.8 - Other specified abnormalities of plasma proteins Status: Acute Assessment and Plan: Elevated troponins and chest discomfort with shortness of breath on admission. EKG does not show any ischemic changes. Echo does not show any wall motion abnormalities Probably nonischemic myocardial damage due to underlying physiologic stressors on admission, but patient is at risk for CAD. Recommend Lexiscan stress test tomorrow. (2) Chest discomfort: Code(s): R07.89 - Other chest pain Status: Acute Assessment and Plan: As above (3) LVH (left ventricular hypertrophy) due to hypertensive disease: Code(s): I11.9 - Hypertensive heart disease without heart failure Status: Acute Assessment and Plan: Patient denies history of hypertension but has LVH and diastolic dysfunction on her EKG. Blood pressure is not at goal here. Agree with SYLVIE-inhibitor and beta-mell. (4) Diabetic ketoacidosis: Qualifiers: Diabetes mellitus complication detail: without coma Diabetes mellitus type: type 2 Qualified Code(s): E11.10 - Type 2 diabetes mellitus with ketoacidosis without coma Code(s): E11.10 - Type 2 diabetes mellitus with ketoacidosis without coma Status: Acute Assessment and Plan: DKA, dehydration resolved (5) Type 2 diabetes mellitus: Code(s): E11.9 - Type 2 diabetes mellitus without complications Status: Acute Assessment and Plan: A1c 9.7 Recommend the addition of a statin, atorvastatin 20 mg daily. History of Present Illness History of Present Illness Consult date/time: 09/05/21 15:36 Requesting physician: Erin Tovar PA-C Consult reason: Other (elevated troponins) Reason For Visit: DKA Narrative: Brunilda Wheeler is a 46-year-old female whom were asked to see at the request of SUZE Tovar for advice and opinion regarding elevated troponins, in consultation. Troponins were: 0.18, 0.24, 0.27. The patient was admitted to the emergency room on September 02 with shortness of breath, nausea, vomiting, dehydration, not taking her diabetes medicines, and in diabetic ketoacidosis. She initially was admitted to the ICU for DKA and has been transferred to the floor. She had noticed some shortness of breath starting on Saturday, and had bandlike chest discomfort around the lower chest on the day of admission with no aggravating or relieving factors. No history of any heart disease, no history of any exertional problems. No hyperlipidemia or hypertension and does not take a statin. Has had diabetes since 2011. Former smoker. Review of Systems Constitutional: Constitutional: Reports fatigue Eyes: Eyes: Reports no additional eye complaints ENT: Denies epistaxis Cardiovascular: Cardiovascular: Reports chest pain, Denies diaphoresis, Denies pedal edema, Denies leg edema, Denies lightheadedness and Denies palpitations Respiratory: Respiratory: Reports chest congestion, Denies cough, Reports dyspnea, Reports dyspnea on exertion and Reports wheezing Gastrointestinal: Gastrointestinal: Denies abdominal pain, Denies hematochezia, Reports nausea (Improved) and Reports vomiting Genitourinary: Genitourinary: Denies hematuria and Denies dysuria Musculoskeletal: Musculoskeletal: Reports no additional musculoskeletal complaints Integumentary/Breasts: Skin/Breast: Denies rash Neurologic: Reports system reviewed and no additional complaints, except as documented and Denies confusion Psychiatric: Psychiatric: Reports anxiety (History of anxiety and depression) and Denies behavioral changes PMFSH Past Medical History Medical History (Updated 09/05/21 @ 16:08 by Tita Weaver MD) Depression Diabetes mellitus LVH (left ventricular hypertrophy) due to hyper
[2021-09-05] MEDS: NEOMYCIN/POLYMYXIN/BACITRACIN OINTMENT PACKET 1 PACKET (16:05)
[2021-09-05] MEDS: lisinopriL 10 MG TABLET PO (16:30)
[2021-09-05 16:47] LABS: Glucose Point of Care 219 mg/dl (65-105)
[2021-09-05 20:20] VITALS: PULSE 103; RESP 18; O2SAT 99
[2021-09-05 20:54] VITALS: PULSE 90
[2021-09-05] MEDS: METOPROLOL TARTRATE 12.5 MG TABLET PO (20:54)
[2021-09-05 22:00] VITALS: BP 148/77; PULSE 103; RESP 18; TEMP 37.3; O2SAT 99
[2021-09-05 23:01] LABS: Glucose Point of Care 180 mg/dl (65-105)
[2021-09-06 06:00] VITALS: BP 142/79; PULSE 91; RESP 18; TEMP 36.1; O2SAT 98
[2021-09-06 06:31] LABS: Hematocrit 35.1 % (37.0-47.0); Hemoglobin 12.2 g/dL (12.0-15.0); Mean Corpuscular HGB Conc 34.8 g/dl (32-36); Mean Corpuscular Hemoglobin 33.1 pg (26-34); Mean Corpuscular Volume 95.1 fl (80-100); Mean Platelet Volume 10.1 fl (7.4-10.4); Platelet Count Result 178 k/mm3 (150-375); Red Blood Count 3.69 M/mm3 (4.2-5.4); Red Cell Distribution Width 13.4 % (11.5-14.5)
[2021-09-06 06:49] LABS: Alanine Aminotransferase 15 U/L (4-35); Albumin Level 3.3 g/dL (3.5-5.1); Alkaline Phosphatase 67 U/L (38-126); Anion Gap 8 mmol/L (8-16); Aspartate Amino Transferase 17 U/L (14-36); Bilirubin,Total 0.5 mg/dL (0.2-1.3); Blood Urea Nitrogen 5 mg/dL (7-17); Calcium 8.5 mg/dL (8.4-10.2); Carbon Dioxide 26 mmol/L (22-30); Chloride 103 mmol/L (98-107); Cholesterol 138 mg/dL (0-200); Estimated CRCL calculation 147 ml/min; Estimated Glomerular Filt Rate > 60; Glucose 174 mg/dL (65-110); HDL Direct 42 mg/dL; Lipase 146 U/L (23-300); Potassium 2.9 mmol/L (3.4-5.0); Sodium 137 mmol/L (137-145); Triglycerides 133 mg/dL (<150)
[2021-09-06 07:00] LABS: LDL Cholesterol Direct 73 mg/dL
--- NOTE | 2021-09-06 07:00 | EST_ITS ---
Patient Info Name: Brunilda Wheeler Age: 46 years : 1975 Gender: Female Ht: 63 in Wt: 187 lbs BSA: 1.98 m2 HR: 86 bpm BP: 122 / 80 mmHg Heart Rhythm: Sinus Rhythm Exam Date: 09/06/2021 11:55 AM Exam Location: [facility] Stress Patient Status: Inpatient Admit Date: 09/03/2021 Staff Ordering Physician: Tita Weaver MD Attending Provider: Mary Rodriguez DO Exercise Technologist: Carlota Joseph CT Exercise Physician: Carter Rose MD Exam Type: CA stress maryam w NM Study Info Indications R07.9 - Chest pain, unspecified A regadenoson stress test was performed. Summary 1. Normal sinus rhythm. 2. Low QRS voltage. 3. No abnormal ST/T wave changes with exercise. 4. Clinically and electrocardiographically uneventful Lexiscan stress test. 5. Myocardial perfusion imaging study to be reported by the Radiology Department. Protocol: Lexiscan Stress ECG Details Stage: REST Duration (min): 0 min : 59 sec HR (bpm): 86 SBP (mmHg): 122 DBP (mmHg): 80 Stage: REST Duration (min): 22 min : 12 sec HR (bpm): 86 SBP (mmHg): 122 DBP (mmHg): 80 Stage: STAGE 1 Duration (min): 1 min : 0 sec HR (bpm): 97 SBP (mmHg): 131 DBP (mmHg): 82 Stage: RECOVERY Duration (min): 1 min : 0 sec HR (bpm): 100 SBP (mmHg): 131 DBP (mmHg): 82 Stage: RECOVERY Duration (min): 2 min : 0 sec HR (bpm): 103 SBP (mmHg): 131 DBP (mmHg): 82 Stage: RECOVERY Duration (min): 3 min : 0 sec HR (bpm): 101 SBP (mmHg): 120 DBP (mmHg): 72 Stage: RECOVERY Duration (min): 3 min : 3 sec HR (bpm): 101 SBP (mmHg): 120 DBP (mmHg): 72 Rest HR: 86 bpm Peak HR: 103 bpm Rest Sys BP: 122 mmHg Peak Sys BP: 131 mmHg Max Pred HR: 174 bpm % Max Pred HR: 59 % Target HR: 148 bpm Max RPP: 13,493 bpm*mmHg BP Response: Normal blood pressure response Termination Reason: Completed protocol Cardiac Symptoms: None Total Time: 1 min : 0 sec Rest Short BP: 80 mmHg Peak Short BP: 82 mmHg Total Dose: 0.4 mg Resting ECG Normal sinus rhythm. Low QRS voltage. Stress ECG No abnormal ST/T wave changes with exercise. Arrhythmias None. Report Signatures
[2021-09-06 08:08] LABS: Glucose Point of Care 186 mg/dl (65-105)
[2021-09-06] MEDS: POTASSIUM CHLORIDE 20 MEQ TABLET 40 MEQ PO (08:38)
[2021-09-06 08:44] LABS: Glucose Point of Care 204 mg/dl (65-105)
[2021-09-06] MEDS: lisinopriL 10 MG TABLET PO (08:46)
[2021-09-06] MEDS: ATORVASTATIN 20 MG TABLET PO (08:49)
[2021-09-06 08:50] VITALS: PULSE 64
[2021-09-06] MEDS: METOPROLOL TARTRATE 12.5 MG TABLET PO (08:50)
[2021-09-06] MEDS: ENOXAPARIN 40 MG/0.4 ML SYRINGE SUB-Q (10:44)
[2021-09-06] MEDS: ASPIRIN 325 MG TABLET PO (10:44)
--- NOTE | 2021-09-06 10:55 | PCCDE ---
Consult received 09/02; pt admitted 09/02 with DKA pt has hx of type 2 diabetes; pt was on Metformin, glipizide, Jardiance and Ozempic ACID PURIFIER but was not taking due to busy . Pt denies that cost was a factor. Current meds: 30 units Lantus daily, high dose correction scale, 09/06 25mg Jardiance OD, 10 mg Glipizide BID Discussed the use of long acting insulin; action and when to take. Pt comfortable with pen use and injection due to taking Ozempic. Reinforced difference of priming insulin pen before every injection. Provided ONE TOUCH [employer] REFLECT BG meter (free of charge); instructed how to use, when to test, BG goals, set up and sync'd with ONE TOUCH REVEAL kelly and demonstrated how use to track and share results. Provided business card and encouraged to contact prn. Recommended pt f/up with an fire fighters dispatcher.
[2021-09-06 14:08] LABS: Glucose Point of Care 161 mg/dl (65-105)
[2021-09-06 14:36] VITALS: BP 143/81; PULSE 87; RESP 20; TEMP 37.2; O2SAT 100
--- NOTE | 2021-09-06 14:40 | PM.DS ---
DS: Admitting Diagnosis Discharge Date 09/06/21 Admitting Diagnosis Shortness of breath DS: Discharge Diagnosis Discharge Diagnosis (1) Diabetic ketoacidosis: Qualifiers: Diabetes mellitus complication detail: without coma Diabetes mellitus type: type 2 Qualified Code(s): E11.10 - Type 2 diabetes mellitus with ketoacidosis without coma Code(s): E11.10 - Type 2 diabetes mellitus with ketoacidosis without coma Status: Acute Assessment and Plan: Patietn with severe metabolic acidosis. pH 6.97 with pCO2 9.4. Serum bicarb <5. She was admitted to ICU and started on DKA protocol. DKA secondary to noncompliance. Anion gap has closed. She was transitioned to Lantus. Diabetic diet started. Diab educator was able to see the patient. Compliance with medications is utmost importance and this was stressed. (2) Diabetes mellitus: Code(s): E11.9 - Type 2 diabetes mellitus without complications Status: Inactive Assessment and Plan: A1c 9.7. The patient's metformin, glipizide and Jardiance had not been filled since February and March 2021. Her Ozempic had not been filled since May 2021. She denies that her noncomplinace was due to cost. We obtained a list of her home meds and resumed some of these. We continued Lantus. May be able to control her DM with lantus at night and oral medications. Home with meter (she does not have one at home). family life educator was able to see the patient before discharge. (3) Pancreatitis: Code(s): K85.90 - Acute pancreatitis without necrosis or infection, unspecified Status: Acute Assessment and Plan: Elevated lipase be secondary to DKA and/or her alcohol use. TG slightly elevated to 161. Her LFTs were normal. RUQ ultrasound showing hepatic steatosis with limited visualization of pancreas due to overlying gas. CT A/P showing no acute findings. Lipase peaked at 1093 before improving to 146. Patient eating without abdominal pain, nausea or vomiting. (4) Chest pain: Code(s): R07.9 - Chest pain, unspecified Status: Acute Assessment and Plan: Patient complains of bandlike sensation around chest which has resolved. Patient is at high risk of coronary disease due to diabetes and possible HTN. Troponins have plateaued at 0.27. Echo showing EF 70% with diastolic dysfunction. No wall motion abnormalities noted. Cardiology consulted and lexiscan stress test ordered. Lexiscan stress test was normal. (5) Acute kidney injury: Code(s): N17.9 - Acute kidney failure, unspecified Status: Acute Assessment and Plan: Patient presented with elevated creatinine 1.6 which was likely from dehydration and hypovolemia. Creatinine has improved with IV fluids and is now in normal range. Resolved. (6) Acute urinary retention: Code(s): R33.8 - Other retention of urine Status: Acute Assessment and Plan: Patient was retaining urine with 1.3 L in the bladder noted in the ER. Idaz catheter was placed at that time. Diaz has since been resumed and voiding normally. No clinical evidence of distended bladder. (7) Leukocytosis: Code(s): D72.829 - Elevated white blood cell count, unspecified Status: Acute Assessment and Plan: Likely due to hemoconcentration and or stress reaction from dehydration. The patient has no evidence of active infection so abx were held. WBC normal now. (8) Dehydration: Code(s): E86.0 - Dehydration Status: Acute Assessment and Plan: Secondary to DKA. She has been fully rehydrated. Renal function normal. Resolved. DS: Summary Hospital Course Reason for hospitalization: 46yo female with DM here for DKA. Please see H&P for details Hospital Course: Please see above for details of hospital course. Status at Discharge Cognitive/behavioral status at discharge: stable Time Spent with Patient Time attestation: Total time
[2021-09-06] MEDS: FLUoxetine HCL 20 MG CAPSULE 40 MG PO (15:16)
[2021-09-06] MEDS: EMPAGLIFLOZIN 25 MG TABLET PO (15:16)
[2021-09-06] MEDS: glipiZIDE XL 5 MG TABCR 10 MG PO (15:16)
[2021-09-06] MEDS: INSULIN GLARGINE (*BKC) 100 UNITS/ML 30 UNITS SUB-Q (15:16)
== END 2021-09-06 16:45 | disposition home or self-care (01) | DRG 637 ==
LOC: ANHED 23:53 → ANHICU 09-03 02:35 → ANH3MEDSUR 09-06 14:57 → ANHICU 09-07 16:51
PROVIDERS: Emergency Medicine; Internal Medicine; Physician Assistant; Admitting Provider Internal Medicine; Emergency Provider General Practice; Visit Provider Internal Medicine
DX: E11.10 Type 2 diabetes mellitus with ketoacidosis without coma (principal); K85.90 Acute pancreatitis without necrosis or infection, unspecified; N17.9 Acute kidney failure, unspecified; Z91.14 Patient's other noncompliance with medication regimen; E11.42 Type 2 diabetes mellitus with diabetic polyneuropathy; R33.8 Other retention of urine; D72.829 Elevated white blood cell count, unspecified; E86.0 Dehydration; F32.A Depression, unspecified; I11.9 Hypertensive heart disease without heart failure; E11.319 Type 2 diabetes mellitus with unspecified diabetic retinopathy without macular edema; G47.33 Obstructive sleep apnea (adult) (pediatric); Z90.710 Acquired absence of both cervix and uterus; Z87.891 Personal history of nicotine dependence
CPT/HCPCS: 36415; 36569; 36600; 71046; 74177; 76705; 78452; 80048; 80053; 80061; 80076; 80307; 81001; 82010; 82375; 82805; 82948; 83036; 83050; 83690; 83735; 84100; 84478; 84484; 85025; 85027; 93005; 93017; 93306; 96361; 96365; 96366; 96368; 96372; 96375; 96376; 99285; A9270; A9502; C1751; G0378; J1650; J1815; J2785; J3480; J7030; Q9967

== ENCOUNTER 2022-04-24 10:05 | Outpatient (CLI) | payer BC, SELFPAY ==
--- NOTE | ~2022-04-24 | MR_ITS ---
EXAMINATION: MR shoulder LT wo con DATE: 04/24/2022 10:50 INDICATION: Left arm weakness, shoulder pain, limited range of motion x6 months. No trauma. TECHNIQUE: Magnetic resonance imaging (MRI) of the left shoulder was performed without intravenous co ntrast. Sequences included axial PD-weighted FS FSE, coronal oblique PD-weighted FS FSE and T2-weight ed FS FSE, and sagittal oblique T2-weighted FS FSE and T1-weighted FSE. COMPARISON: None. FINDINGS: Coracoacromial arch: Mild anterolateral downsloping of the type II acromion. No subcoracoid narrowing. Moderate AC joint h ypertrophy with indentation of the superior cuff. Rotator cuff: 4 mm bursal sided partial thickness tear of the supraspinatus at the cortical zone. 3 mm articular mccabe rface partial tear of the infraspinatus at the footplate. 4 mm interstitial type tear of the supraspi natus. Distal cuff tendinopathy and bursal sided fraying. Biceps tendon and glenoid labrum: Long head and short heads of the biceps are intact. Posterior labral tear, with a suggestion of infil ling by granulomatous tissue. Fluid: Small volume subacromial subdeltoid fluid. Small volume glenohumeral fluid. Bones/cartilage: No suspicious marrow signal. Glenoid cartilage thinning. IMPRESSION: 1. Focal partial thickness tears of the distal supraspinatus and infraspinous muscles. Interstitial t ype tear at the musculotendinous junction in the supraspinatus. 2. Old posterior labral tear. 3. Mild osseous outlet compromise with mild subacromial subdeltoid bursitis. 4. Mild glenohumeral osteoarthritis. Reviewed, dictated and finalized at location K. IMPRESSION: 1. Focal partial thickness tears of the distal supraspinatus and infraspinous m uscles. Interstitial type tear at the musculotendinous junction in the supraspi natus. 2. Old posterior labral tear. 3. Mild osseous outlet compromise with mild subacromial subdeltoid bursitis. 4. Mild glenohumeral osteoarthritis.
== END 2022-04-24 10:06 ==
DX: M19.012 Primary osteoarthritis, left shoulder (principal); R29.898 Other symptoms and signs involving the musculoskeletal system; M75.102 Unspecified rotator cuff tear or rupture of left shoulder, not specified as traumatic; M75.52 Bursitis of left shoulder
CPT/HCPCS: 73221